=== PATIENT | male | born 2005 | race Caucasian/White ===

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

== ENCOUNTER 2023-10-03 12:50 | Emergency (ER) | payer OTHER, SELFPAY ==
--- NOTE | ~2023-10-03 | XR_ITS ---
XR hand RT min 3V DATE: 10/03/2023 14:06 INDICATION: Pain TECHNIQUE: 3 views COMPARISON: None FINDINGS: No fracture or dislocation, periosteal reaction or bone destruction. Joint spaces are well preserved. No erosive change or chondrocalcinosis. IMPRESSION: Negative Reviewed, dictated and finalized at location B. IMPRESSION: Negative
[2023-10-03 13:10] VITALS: BP 123/76; PULSE 85; RESP 20; TEMP 37.2; O2SAT 100
--- NOTE | 2023-10-03 13:41 | ED.EXTPRO ---
HPI - Extremity Problem General Chief complaint: Extremity Problem,Nontraumatic Stated complaint: Right Hand Pain Time Seen by Provider: 10/03/23 13:20 Source: patient, RN notes reviewed and old records reviewed Mode of arrival: ambulatory Limitations: no limitations History of Present Illness HPI Narrative: 18 year old male presents to express care with complaints of pain to his right hand that he has had since he started college. Patient reports that in the past 2-3 days the pain in his right hand is unbearable. Patient reports that he takes Ibuprofen daily, has used ice packs also.Patient reports that he has to use a lap top a lot for school and for recreation he is into terence. Patient reports that he discussed this with his PCP in July and was given some exercises to do for his hand and he has done them which haven't helped.Patient reports pain is in his fingers moves all fingers well on own power is able to make a fist, reports some tingling and numbness in fingers states thumb isn't really involved. Patient has full mobility of his right wrist with strong radial pulse. MD Complaint: extremity pain (right hand) Onset (ago): year(s) (2 years but has increased in past 2-3 days) Pain Consistency: constant Severity scale (1-10): 4 Quality: aching Exacerbating factors: other (use of right hand) Related Data Allergies Allergy/AdvReac Type Severity Reaction Status Date / Time Penicillins Allergy Unknown Unknown Verified 10/03/23 13:02 Review of Systems Review of Systems: CONSTITUTIONAL: Denies fever, chills, or sweats. EYES: Denies visual changes, redness, or discharge. ENT: Denies rhinorrhea, congestion, sore throat, or otalgia. CARDIOVASCULAR: Denies chest pain, palpitations, or edema. RESPIRATORY: Denies cough or dyspnea. GASTROINTESTINAL: Denies abdominal pain, nausea, vomiting, or diarrhea. GENITOURINARY: Denies dysuria or hematuria. SKIN: Denies rash or itching. MUSCULOSKELETAL: Denies back pain, Reports pain to fingers of right hand increases with use, or myalgia. NEUROLOGIC: Denies headache, some tingling numbness to fingers right hand,no weakness. PSYCHIATRIC: Denies anxiety or depression. All systems reviewed & are unremarkable except as noted in HPI and below [facility] Past Medical History Medical History (Updated 10/04/23 @ 11:32 by Erika Tomas NP) ADHD Autism high functioning Oppositional defiant disorder Surgical History Surgical History History of ankle surgery Family History Family History Mother Family history of thyroid disease Family history of rheumatoid arthritis Family history of diabetes mellitus in first degree relative Other Diabetes mellitus Family history of heart disease in male family member before age 55 Family history of malignant neoplasm Social History Social History Smoking status: Never smoker Second hand tobacco smoke exposure: No Alcohol intake: never Substance use: never Substance use type: does not use Lack of Transportation: No Lack of Food: Never True Current Housing: I Have Housing Concerned About Future Housing: No Difficulty Paying Gas/Electric Bills: No Difficulty Paying for Meds: No Currently Unemployed: YES Education: High School Diploma/GED Difficulty w/ Childcare or Family Care: No Living arrangements: with family Occupation/Education: student Gender identity (if verbalized by the patient): Male Spiritual care concerns: No Agree to blood products: Yes Comments At time of signature, agree with nursing past medical, surgical, social and family history. There is no relevant family history pertinent to the presenting complaint Exam Narrative: GENERAL: Well-appearing, well-nourished, and in no acute distress. HEAD: Normocephalic, atraumatic. E
== END 2023-10-03 14:27 | disposition home or self-care (01) ==
PROVIDERS: Emergency Provider Registered Nurse
DX: M25.541 Pain in joints of right hand (principal); F84.0 Autistic disorder
CPT/HCPCS: 73130; 99213; G0463

== ENCOUNTER 2023-10-18 15:08 | Outpatient (CLI) | payer OTHER, SELFPAY ==
[2023-10-18 19:23] LABS: Hematocrit 47.2 % (42.0-52.0); Hemoglobin 15.8 g/dL (14.0-18.0); Mean Corpuscular HGB Conc 33.5 g/dl (32-36); Mean Corpuscular Hemoglobin 30.8 pg (26-34); Mean Platelet Volume 11.9 fl (7.4-10.4); Platelet Count Result 226 k/mm3 (150-375); Red Blood Count 5.13 M/mm3 (4.6-6.20); Red Cell Distribution Width 12.7 % (11.5-14.5); White Blood Count 6.8 K/mm3 (4.5-10.0)
[2023-10-18 19:28] LABS: Rheumatoid Factor < 12.0 IU/ML (<12)
[2023-10-18 19:32] LABS: Alanine Aminotransferase 75 U/L (6-50); Albumin Level 4.8 g/dL (3.5-5.1); Alkaline Phosphatase 72 U/L (38-126); Anion Gap 7 mmol/L (4-12); Aspartate Amino Transferase 81 U/L (17-59); Blood Urea Nitrogen 16 mg/dL (9-20); Calcium 9.5 mg/dL (8.4-10.2); Carbon Dioxide 30 mmol/L (22-30); Chloride 104 mmol/L (98-107); Estimated Glomerular Filt Rate > 60; Glucose 102 mg/dL (65-110); Potassium 4.9 mmol/L (3.4-5.0); Sodium 141 mmol/L (137-145)
[2023-10-18 20:24] LABS: Erythrocyte Sedimentation Rate 5 mm/hr (0-20)
== END 2023-10-18 15:09 | disposition home or self-care (01) ==
LOC: ANHGOSHLAB 15:09
PROVIDERS: PCP Family Medicine; Visit Provider Physician Assistant
DX: D64.9 Anemia, unspecified (principal); M25.50 Pain in unspecified joint; Z13.1 Encounter for screening for diabetes mellitus
CPT/HCPCS: 36415; 80053; 85027; 85652; 86038; 86430

== ENCOUNTER 2023-10-18 15:20 | Outpatient (CLI) | payer OTHER, SELFPAY ==
--- NOTE | ~2023-10-18 | XR_ITS ---
EXAMINATION: XR foot RT 2V DATE: 10/18/2023 15:40 INDICATION: Pain in unspecified joint. Right foot pain. TECHNIQUE: 2 views of right foot were obtained. COMPARISON: None. FINDINGS: Bone alignment is normal. No fracture. There is a screw in sinus Tarsi. Joint spaces are no rmal. IMPRESSION: 1. No etiology for the patient's symptoms. Reviewed, dictated and finalized at location E.
--- NOTE | ~2023-10-18 | XR_ITS ---
EXAMINATION: XR knee RT 3V DATE: 10/18/2023 15:40 INDICATION: Pain in unspecified joint. Right knee pain. TECHNIQUE: 3 views of right knee including standing views were obtained. COMPARISON: None. FINDINGS: Bone alignment is normal. No fracture. Joint spaces are normal. No knee joint effusion. IMPRESSION: 1. Normal right knee. Reviewed, dictated and finalized at location E. IMPRESSION: 1. Normal right knee.
== END 2023-10-18 15:21 ==
PROVIDERS: PCP Family Medicine; Visit Provider Physician Assistant
DX: M79.671 Pain in right foot (principal); M25.561 Pain in right knee
CPT/HCPCS: 73562; 73620

== ENCOUNTER 2023-12-19 15:36 | Outpatient (CLI) | payer OTHER, SELFPAY ==
[2023-12-19 19:57] LABS: Alanine Aminotransferase 24 U/L (6-50); Albumin Level 4.5 g/dL (3.5-5.1); Alkaline Phosphatase 67 U/L (38-126); Aspartate Amino Transferase 49 U/L (17-59); Bilirubin,Total 0.8 mg/dL (0.2-1.3)
[2023-12-19 20:26] LABS: Hepatitis B Surface Antigen Negative (Negative)
[2023-12-19 20:32] LABS: HAV RESULT Negative (Negative); Hepatitis B Core IgM Result Negative (Negative)
[2023-12-19 20:44] LABS: Hepatitis C Virus Antibody Negative (Negative)
== END 2023-12-19 15:37 | disposition home or self-care (01) ==
LOC: ANHGOSHLAB 15:37
PROVIDERS: PCP Family Medicine; Visit Provider Physician Assistant
DX: R79.89 Other specified abnormal findings of blood chemistry (principal)
CPT/HCPCS: 36415; 80074; 80076

== ENCOUNTER 2024-03-03 13:18 | Outpatient (CLI) | payer OTHER, SELFPAY ==
--- NOTE | 2024-03-03 14:45 | NEURO_ITS ---
Impression: # Complains of numbness of hands. # Normal Nerve Conduction Study; No Carpal Tunnel Syndrome or ulnar neuropathy. # Normal needle/EMG exam. # Clinical correlation recommended. Nerve Conduction Studies Anti Sensory Summary Table Stim Site NR Peak (ms) P-T Amp (?V) Site1 Site2 Delta-P (ms) Dist (cm) Patrice (m/s) Left Median Anti Sensory (2-3nd Digit) Wrist 2.9 73.2 Wrist 2-3nd Digit 2.9 14.0 48 Wrist 2.9 88.3 Wrist 2-3nd Digit 2.9 14.0 48 Right Median Anti Sensory (2-3nd Digit) Wrist 3.0 80.6 Wrist 2-3nd Digit 3.0 14.0 47 Wrist 3.0 77.1 Wrist 2-3nd Digit 3.0 14.0 47 Left Radial Anti Sensory (Base 1st Digit) Wrist 2.2 19.2 Wrist Base 1st Digit 2.2 0.0 Right Radial Anti Sensory (Base 1st Digit) Wrist 2.4 30.5 Wrist Base 1st Digit 2.4 0.0 Left Ulnar Anti Sensory (5th Digit) Wrist 2.5 78.4 Wrist 5th Digit 2.5 14.0 56 Right Ulnar Anti Sensory (5th Digit) Wrist 2.5 90.7 Wrist 5th Digit 2.5 14.0 56 Motor Summary Table Stim Site NR Onset (ms) O-P Amp (mV) Site1 Site2 Delta-0 (ms) Dist (cm) Patrice (m/s) Left Median Motor (Abd Poll Brev) Wrist 2.9 3.7 Elbow Wrist 5.1 31.0 61 Elbow 8.0 5.9 Right Median Motor (Abd Poll Brev) Wrist 3.0 4.3 Elbow Wrist 5.3 31.0 58 Elbow 8.3 8.8 Left Ulnar Motor (Abd Dig Minimi) Wrist 2.7 7.2 A Elbow Wrist 5.2 31.0 60 A Elbow 7.9 6.8 Right Ulnar Motor (Abd Dig Minimi) Wrist 2.7 7.6 A Elbow Wrist 5.2 31.0 60 A Elbow 7.9 6.7 F Wave Studies NR F-Lat (ms) L-R F-Lat (ms) Left Median (Mrkrs) (Abd Poll Brev) 28.38 0.94 Right Median (Mrkrs) (Abd Poll Brev) 27.44 0.94 Left Ulnar (Mrkrs) (Abd Dig Min) 28.46 0.68 Right Ulnar (Mrkrs) (Abd Dig Min) 29.14 0.68 EMG Side Muscle Nerve Root Ins Act Fibs Amp Dur Recrt Comment Right 1stDorInt Ulnar C8-T1 Nml Nml Nml Nml Nml Right Ext Indicis Radial (Post Int) C7-8 Nml Nml Nml Nml Nml Right Ext Digitorum Radial (Post Int) C7-8 Nml Nml Nml Nml Nml Right BrachioRad Radial C5-6 Nml Nml Nml Nml Nml Right PronatorTeres Median C6-7 Nml Nml Nml Nml Nml Right Abd Poll Brev Median C8-T1 Nml Nml Nml Nml Nml Right ABD Dig Min Ulnar C8-T1 Nml Nml Nml Nml Nml Left 1stDorInt Ulnar C8-T1 Nml Nml Nml Nml Nml Left Ext Indicis Radial (Post Int) C7-8 Nml Nml Nml Nml Nml Left Ext Digitorum Radial (Post Int) C7-8 Nml Nml Nml Nml Nml Left BrachioRad Radial C5-6 Nml Nml Nml Nml Nml Left PronatorTeres Median C6-7 Nml Nml Nml Nml Nml Left Abd Poll Brev Median C8-T1 Nml Nml Nml Nml Nml Left ABD Dig Min Ulnar C8-T1 Nml Nml Nml Nml Nml MTDD
== END 2024-03-03 13:19 | disposition home or self-care (01) ==
LOC: ANHNEURO 13:20
PROVIDERS: PCP Family Medicine; Visit Provider Plastic Surgery
DX: G56.03 Carpal tunnel syndrome, bilateral upper limbs (principal)
CPT/HCPCS: 95886; 95911